=== PATIENT | female | born 1980 | race Hispanic/Latino ===

== ENCOUNTER 2024-07-23 16:47 | Inpatient (IN) | payer SELFPAY ==
[~2024-07-23] VITALS: Ht 152.4 cm; Wt 56.3 kg
[2024-07-23 17:06] LABS: BILIRUBIN,URINE NEGATIVE (NEGATIVE); COLOR,URINE YELLOW (YELLOW); GLUCOSE, URINE (UA) NEGATIVE (NEGATIVE); KETONES,URINE NEGATIVE (NEGATIVE); LEUKOCYTE ESTERASE ,URINE 75 Leu/uL (NEGATIVE); NITRATE,URINE NEGATIVE (NEGATIVE); OCCULT BLOOD,URINE LARGE (NEGATIVE); PH,URINE 6.5 (5.0-8.0); PROTEIN,URINE 50 mg/dL (NEGATIVE); UROBILINOGEN,URINE 3 mg/dL (0.2-1.0)
[2024-07-23 17:08] LABS: ADD UA MICROSCOPIC YES; APPEARANCE,URINE HAZY (CLEAR)
[2024-07-23 17:10] LABS: BACTERIA,URINE FEW /HPF (None Seen); MUCUS,URINE RARE LPF (None Seen); RBC,URINE 51-100 /HPF (0-1); SQUAMOUS EPITHELIAL CELL,UR RARE /HPF (0-2); WBC,URINE 26-50 /HPF (0-1)
[2024-07-23] MEDS: 0.9%NACL 1000ML 1,000 ML IV ONE ×2 (17:15→18:17)
[2024-07-23] MEDS: acetaMINOPHEN 500 MG TABLET PO ONE (17:24)
[2024-07-23 17:26] LABS: BASOPHILS # (AUTO) 0.03 K/uL (0.00-0.20); BASOPHILS % (AUTO) 0.3 % (0.0-5.0); EOSINOPHILS # (AUTO) 0.01 K/uL (0.00-0.70); EOSINOPHILS % (AUTO) 0.1 % (0.0-8.0); HEMATOCRIT 35.2 % (36-48); IMMATURE GRANULOCYTE ABSOLUTE 0.03 K/uL (0-1); LYMPHOCYTES # (AUTO) 1.1 K/uL (1.0-4.8); LYMPHOCYTES % (AUTO) 12.6 % (21.0-51.0); MEAN CORPUSCULAR HEMOGLOBIN 28.7 pg (27.0-33.0); MEAN CORPUSCULAR HGB CONC 33.8 g/dL (32.0-36.0); MEAN CORPUSCULAR VOLUME 84.8 fL (79-99); MONOCYTES # (AUTO) 0.7 K/uL (0.1-1.0); MONOCYTES % (AUTO) 8.6 % (3.0-13.0); NEUTROPHILS # (AUTO) 6.8 K/uL (1.8-7.7); NEUTROPHILS % (AUTO) 78.1 % (40.0-77.0); PLATELET COUNT (AUTO) 405 K/uL (130-400); RED BLOOD CELL COUNT(AUTO) 4.15 MIL/uL (4.00-5.50); RED CELL DISTRIBUTION WIDTH 14.7 % (11.0-15.5); WHITE BLOOD COUNT (AUTO) 8.7 K/uL (4.8-10.8)
[2024-07-23 17:44] LABS: ALBUMIN 2.4 g/dL (3.5-5.0); BILIRUBIN,TOTAL 1.1 mg/dL (0.2-1.0); TOTAL PROTEIN, SERUM 7.5 g/dL (6.0-8.3)
[2024-07-23 17:48] LABS: POTASSIUM 2.9 mmol/L (3.5-5.1)
[2024-07-23 18:02] LABS: SARS-CoV-2, RNA, NAAT NEGATIVE SARS CoV-2 (NEGATIVE)
[2024-07-23 18:09] LABS: INFLUENZA TYPE A Negative For Type A (NEGATIVE); INFLUENZA TYPE B Negative For Type B (NEGATIVE)
[2024-07-23] MEDS: cefTRIAXone 1G VIAL IVPB ONE (18:09)
[2024-07-23 18:14] VITALS: TEMP 100.2
[2024-07-23] MEDS: POTASSIUM BICARB/CIT AC 25 MEQ TABLET.EFF PO ONE (18:17)
[2024-07-23] MEDS: ONDANSETRON 4MG INJ IVP ONE (18:26)
[2024-07-23] MEDS: morPHINE 2 MG SYG IVP ONE (18:26)
[2024-07-23] MEDS: LACTATED RINGERS 1000ML 1,000 ML IV SCH (21:25)
[2024-07-23] MEDS ORDERED: morPHINE 2 MG SYG IVP PRN (21:30)
[2024-07-23] MEDS ORDERED: GLUCAGON 1MG KIT 1 MG ML IM PRN (21:30)
[2024-07-23] MEDS ORDERED: LACTULOSE 20 GM/30 ML UDCUP PO PRN (21:30)
[2024-07-23] MEDS ORDERED: acetaMINOPHEN 650 MG SUPPOSITORY RC PRN (21:30)
[2024-07-23] MEDS ORDERED: DEXTROSE 50%-WATER 50 ML DISP.SYRIN IV PRN (21:30)
[2024-07-23] MEDS ORDERED: TEMAZEPAM 15 MG CAPSULE PO PRN (21:30)
[2024-07-23] MEDS ORDERED: MAGNESIUM 2GM PREMIX 50ML 50 ML IV PRN (21:30)
[2024-07-23] MEDS ORDERED: hydrALAZine 20MG/ML VIAL IV PRN (21:30)
[2024-07-23] MEDS ORDERED: doCUSate SODIUM 100 MG CAP PO PRN (21:30)
[2024-07-23] MEDS ORDERED: KCL 20 MEQ ERTAB PO PRN (21:30)
[2024-07-23] MEDS ORDERED: POTASSIUM CHLORIDE 10% ELIXIR 20 MEQ/15 ML UDCUP PO PRN (21:30)
[2024-07-23] MEDS ORDERED: ONDANSETRON 4MG INJ IVP PRN (21:30)
[2024-07-23] MEDS ORDERED: traMADol HCL 50 MG TABLET PO PRN (21:30)
[2024-07-23] MEDS ORDERED: POTASSIUM CHLORIDE 20MEQ/100ML 100 ML IV PRN (21:30)
[2024-07-23 22:05] VITALS: BP 126/81; PULSE 98; RESP 19; TEMP 97.8
[2024-07-24] VITALS (8 sets, daily range): BP systolic 110–126; BP diastolic 75–89; PULSE 89–96; RESP 16–19; TEMP 97.4–98.9; O2SAT 100
[2024-07-24 05:57] LABS: BASOPHILS # (AUTO) 0.02 K/uL (0.00-0.20); BASOPHILS % (AUTO) 0.3 % (0.0-5.0); EOSINOPHILS # (AUTO) 0.06 K/uL (0.00-0.70); EOSINOPHILS % (AUTO) 0.9 % (0.0-8.0); HEMATOCRIT 28.8 % (36-48); IMMATURE GRANULOCYTE ABSOLUTE 0.03 K/uL (0-1); LYMPHOCYTES # (AUTO) 1.4 K/uL (1.0-4.8); LYMPHOCYTES % (AUTO) 20.1 % (21.0-51.0); MEAN CORPUSCULAR HEMOGLOBIN 28.6 pg (27.0-33.0); MEAN CORPUSCULAR HGB CONC 33.3 g/dL (32.0-36.0); MEAN CORPUSCULAR VOLUME 85.7 fL (79-99); MONOCYTES # (AUTO) 0.8 K/uL (0.1-1.0); MONOCYTES % (AUTO) 12.3 % (3.0-13.0); NEUTROPHILS # (AUTO) 4.5 K/uL (1.8-7.7); PLATELET COUNT (AUTO) 346 K/uL (130-400); RED BLOOD CELL COUNT(AUTO) 3.36 MIL/uL (4.00-5.50); RED CELL DISTRIBUTION WIDTH 14.9 % (11.0-15.5); WHITE BLOOD COUNT (AUTO) 6.8 K/uL (4.8-10.8)
[2024-07-24 06:11] LABS: HEMOGLOBIN A1C 5.7 % (4.0-6.0)
[2024-07-24 06:21] LABS: CREATININE 0.7 mg/dL (0.5-1.0); MAGNESIUM 2.1 mg/dL (1.80-2.40); PHOSPHORUS 2.4 mg/dL (2.5-4.9); POTASSIUM 3.9 mmol/L (3.5-5.1); THYROID STIMULATING HORMONE 1.75 uIU/mL (0.36-3.74)
[2024-07-24] MEDS: INSULIN humuLIN R 100 UNIT/ML 3ML SQ SCH (06:28)
[2024-07-24] MEDS: acetaMINOPHEN 325 MG TAB PO PRN (09:56)
[2024-07-24] MEDS: PANTOPRAZOLE 40 MG/VIAL IVP SCH (09:57)
[2024-07-24] MEDS: FERROUS SULFATE 325 MG TABLET.DR PO SCH (09:57)
[2024-07-24] MEDS: ENOXAPARIN SODIUM 30 MG/0.3 ML SQ SCH (10:01)
[2024-07-24] MEDS: CEFTRIAXONE 2GM VIAL IVPB SCH (10:08)
[2024-07-25] VITALS: BP 130/83; PULSE 81; RESP 17; TEMP 97.5
[2024-07-25 04:00] VITALS: BP 125/82; PULSE 82; RESP 17; TEMP 97.4
[2024-07-25 07:42] VITALS: BP 128/88; PULSE 91; RESP 16; TEMP 98.3
[2024-07-25 08:34] VITALS: O2SAT 100
[2024-07-25 12:00] VITALS: BP 136/88; PULSE 82; RESP 16; TEMP 98.2
[2024-07-25] MEDS ORDERED: LEVO750T39 PO (13:46)
== END 2024-07-25 16:35 | disposition home or self-care (01) | DRG 872 ==
LOC: EDH 16:47 → EDHIP 16:48 → 3BH 21:45 → 3CH 21:48
PROVIDERS: ADMIT Internal Medicine; ATTEND Internal Medicine
DX: A41.9 Sepsis, unspecified organism (principal); N10 Acute pyelonephritis; N30.01 Acute cystitis with hematuria; N17.9 Acute kidney failure, unspecified; E87.1 Hypo-osmolality and hyponatremia; E87.20 Acidosis, unspecified; K81.0 Acute cholecystitis; R65.20 Severe sepsis without septic shock; E87.6 Hypokalemia; G43.909 Migraine, unspecified, not intractable, without status migrainosus; E87.8 Other disorders of electrolyte and fluid balance, not elsewhere classified; D64.9 Anemia, unspecified; D75.839 Thrombocytosis, unspecified; R74.01 Elevation of levels of liver transaminase levels; E88.09 Other disorders of plasma-protein metabolism, not elsewhere classified; I10 Essential (primary) hypertension; K59.00 Constipation, unspecified
CPT/HCPCS: 36415; 71045; 74176; 76705; 80048; 80053; 81001; 82948; 83036; 83540; 83550; 83605; 83735; 84100; 84132; 84145; 84443; 84703; 85025; 87040; 87086; 87635; 87804; 93005; 96361; 96374; 96375; G0378; J0696; J1650; J2270; J2405; J2470; J7030; J7120